=== PATIENT | male | born 1950 | race Caucasian/White ===

== ENCOUNTER 2019-06-18 11:23 | Emergency (ER) | payer MEDICARE, OTHER ==
--- NOTE | 2019-06-18 12:27 | ED Physician Documentation ---
PD HPI ABD PAIN - Stated complaint Stated Complaint: MALE - Chief complaint Chief Complaint: Abd Pain - History obtained from History obtained from: Patient - History of Present Illness Timing - onset: Other (68-year-old gentleman status post remote coronary bypass and stroke presents with 10 days of lower abdominal and pelvic pain radiating to the right lower quadrant. It started after eating spicy food and a car trip so he thought either of those might be causative but as time continued and he got no relief, that did not seem likely. It is a constant dull pain. Its not associated with nausea, vomiting, changes in bowel movements, testicular pain, or urinary complaints or hematuria. No history of abdominal surgeries.) Review of Systems Ten Systems: 10 systems reviewed and negative Constitutional: denies: Fever, Chills Cardiac: denies: Chest pain / pressure, Palpitations Respiratory: denies: Dyspnea, Cough GI: reports: Abdominal Pain. denies: Nausea, Vomiting, Constipation, Diarrhea, Hematemesis, Bloody / black stool PD PAST MEDICAL HISTORY - Past Medical History Past Medical History: Yes Cardiovascular: Coronary artery disease - Past Surgical History Past Surgical History: Yes Cardiovascular: CABG - Allergies Allergies/Adverse Reactions: Allergies Allergy/AdvReac Type Severity Reaction Status Date / Time morphine Allergy Emesis Verified 06/18/19 11:29 - Living Situation Living Situation: reports: With spouse/s.o. - Social History Does the pt smoke?: No Does the pt drink ETOH?: No - Family History Family history: reports: Non contributory PD ED PE NORMAL - Vitals Vital signs reviewed: Yes - General General: Alert and oriented X 3, No acute distress - HEENT HEENT: PERRL, EOMI - Neck Neck: Supple, no meningeal sign, No bony TTP - Cardiac Cardiac: RRR, No murmur - Respiratory Respiratory: No respiratory distress, Clear bilaterally - Abdomen Abdomen: Normal bowel sounds, Soft, No organomegaly, Other (Focally tender in the pelvic area and right lower quadrant without surgical signs) - Back Back: No CVA TTP, No spinal TTP - Derm Derm: Normal color, Warm and dry, No rash - Extremities Extremities: No edema, No calf tenderness / cord - Neuro Neuro: Alert and oriented X 3, Normal speech Results - Vitals Vitals: Vital Signs - 24 hr 06/18/19 11:29 Temperature 36.7 C Heart Rate 61 Respiratory 16 Rate Blood Pressure 177/68 H O2 Saturation 97 Oxygen O2 Source Room air - Labs Labs: Laboratory Tests 06/18/19 06/18/19 06/18/19 12:15 12:40 12:40 WBC 6.1 RBC 5.35 Hgb 16.2 Hct 49.7 MCV 92.9 MCH 30.3 MCHC 32.6 RDW 12.7 Plt Count 199 MPV 9.7 Neut # (Auto) 4.1 Lymph # (Auto) 1.[address] [place] # (Auto) 0.4 Eos # (Auto) 0.1 Baso # (Auto) 0.1 Absolute Nucleated RBC 0.00 Nucleated RBC % 0.0 Sodium 136 Potassium 4.1 Chloride 101 Carbon Dioxide 26 Anion Gap 9.0 BUN 15 Creatinine 1.3 H Estimated GFR (MDRD) 55 L Glucose 129 H Calcium 9.1 Total Bilirubin 0.8 AST 26 ALT 22 Alkaline Phosphatase 40 L Total Protein 8.0 Albumin 4.7 Globulin 3.3 Albumin/Globulin Ratio 1.4 Lipase 37 Urine Color YELLOW Urine Clarity CLEAR Urine pH 6.0 Ur Specific [place] <=1.005 Urine Protein NEGATIVE Urine Glucose (UA) NEGATIVE Urine Ketones NEGATIVE Urine Occult Blood NEGATIVE Urine Nitrite NEGATIVE Urine Bilirubin NEGATIVE Urine Urobilinogen 0.2 (NORMAL) Ur Leukocyte Esterase NEGATIVE Ur Microscopic Review NOT INDICATED Urine Culture Comments NOT INDICATED - Rads (name of study) CT A/p Radiology: EMP read contemporaneously (diverticolsis, NAD) PD MEDICAL DECISION MAKING - ED course ED course: 69-year-old gentleman presents with kind of subacute right lower quadrant pain, some tenderness on exam. CT imaging was done, read is negative although there is a prominent stool ball in the right lower quadrant which may be causative. We will trial some magnesium citrate for same. He declined pain medication. Departure - Departure Disposition: Home, Self Care Clinical Impression: Abdominal pain Qualifiers: Abdominal location: right lower quadrant Qualified Code(s): R10.31 - Right lower quadrant pain Condition: Good Record reviewed to determine appropriate education?: Yes Instructions: ED Abdominal Pain Unkn Cause Male Comments: The radiologist noted no abnormalities on your CAT scan other than diverticulosis, not diverticulitis, and you already knew about this. I feel that stool ball may be the cause of your pain and should be better after the magnesium citrate. Return for new or worsening symptoms, you should still follow-up for that colonoscopy as you were planning. Your blood pressure was elevated today on check into the emergency department. This does not mean that you have hypertension, it is a common phenomenon to come to the emergency department and have elevated blood pressure. I recommend that you see your primary care physician within the week to have it rechecked when you are feeling better.
[2019-06-18 12:28] LABS: BILIRUBIN,URINE NEGATIVE (NEGATIVE); GLUCOSE, URINE (UA) NEGATIVE (NEGATIVE); KETONES,URINE (UA) NEGATIVE (NEGATIVE); LEUKOCYTE ESTERASE, URINE NEGATIVE (NEGATIVE); NITRITE,URINE NEGATIVE (NEGATIVE); OCCULT BLOOD,URINE NEGATIVE (NEGATIVE); PROTEIN,URINE NEGATIVE (NEGATIVE); UROBILINOGEN,URINE 0.2 (NORMAL) E.U./dL (NORMAL)
[2019-06-18 12:44] LABS: CLARITY,URINE CLEAR (CLEAR)
[2019-06-18 13:12] LABS: BASOPHILS # (AUTO) 0.1 10^3/uL (0.0-0.1); EOSINOPHILS # (AUTO) 0.1 10^3/uL (0.0-0.7); EOSINOPHILS % (AUTO) 2.3 %; HGB - HEMOGLOBIN 16.2 g/dL (14.0-18.0); LYMPHOCYTES # (AUTO) 1.4 10^3/uL (1.5-3.5); LYMPHOCYTES % (AUTO) 22.5 %; MEAN CORPUSCULAR HEMOGLOBIN 30.3 pg (27.0-31.0); MEAN CORPUSCULAR HGB CONC 32.6 g/dL (32.0-36.0); MEAN CORPUSCULAR VOLUME 92.9 fL (80.0-94.0); MEAN PLATELET VOLUME 9.7 fL (7.4-11.4); MONOCYTES # (AUTO) 0.4 10^3/uL (0.0-1.0); MONOCYTES % (AUTO) 6.4 %; NEUTROPHILS # (AUTO) 4.1 10^3/uL (1.5-6.6); NEUTROPHILS % (AUTO) 67.3 %; PLT - PLATELET COUNT 199 10^3/uL (130-450); RED BLOOD COUNT 5.35 10^6/uL (4.70-6.10); RED CELL DISTRIBUTION WIDTH 12.7 % (12.0-15.0); WHITE BLOOD COUNT 6.1 x10^3/uL (4.8-10.8)
[2019-06-18 13:23] LABS: ALBUMIN 4.7 g/dL (3.2-5.5); ALBUMIN/GLOBULIN RATIO 1.4 (1.0-2.2); BILIRUBIN,TOTAL 0.8 mg/dL (0.2-1.0); CALCIUM 9.1 mg/dL (8.5-10.3); CREATININE 1.3 mg/dL (0.6-1.2)
[2019-06-18] MEDS ORDERED: IOVERSOL 320 100 ML VIAL IVP ONE ×2 (13:34→15:58)
--- NOTE | 2019-06-18 14:35 | CT Report ---
Reason: right lower quadrant pain Procedure Date: 06/18/2019 Accession Number: [id number] / [id number] Procedure: CT - Abdomen/Pelvis W CPT Code: Final Report FULL RESULT: EXAM: CT ABDOMEN AND PELVIS EXAM DATE: 06/18/2019 02:04 PM HISTORY: right lower quadrant pain COMPARISON: NONE TECHNIQUE: Routine helical CT imaging was performed through the abdomen and pelvis. IV contrast: 90 mL Optiray 320. Enteric contrast: No. Reconstructions: Coronal and sagittal. In accordance with CT protocol optimization, one or more of the following dose reduction techniques were utilized for this exam: automated exposure control, adjustment of mA and/or KV based on patient size, or use of iterative reconstructive technique. FINDINGS: LOWER CHEST: Unremarkable. SOLID ORGANS: Within exam limitations, there is no significant abnormality of the liver, spleen, pancreas, adrenal glands or kidneys. GALLBLADDER/BILE DUCTS: No significant abnormality. PERITONEAL CAVITY/BOWEL: No abnormal bowel dilatation. No free air or free fluid. Distal colonic diverticulosis noted without evidence of diverticulitis. Normal appendix. CENTRAL RETROPERITONEUM: Moderate calcific atherosclerotic disease of the aorta. No aneurysm. No retroperitoneal lymphadenopathy. PELVIS: Unremarkable urinary bladder contour. No intravesicular calculi. No inflammation or free fluid. OTHER: Skeleton: No significant skeletal abnormality. Abdominal wall: No significant abnormality. IMPRESSION: Distal colonic diverticulosis noted without evidence of diverticulitis. Normal appendix. No evidence of inflammation or free fluid. RADIA
[2019-06-18] MEDS ORDERED: MAGNESIUM CITRATE 296 ML BOTTLE PO STA (14:38)
[2019-06-18 14:51] VITALS: BP 134/79
== END 2019-06-18 14:51 | disposition home or self-care (01) ==
LOC: ED 11:23
DX: R10.31 Right lower quadrant pain (principal); R03.0 Elevated blood-pressure reading, without diagnosis of hypertension
CPT/HCPCS: 36415; 74177; 80053; 81003; 83690; 85025; 99284; A9270; Q9967; 81001; 87086

== ENCOUNTER 2021-08-16 08:00 | Outpatient (CLI) | payer MEDICARE, OTHER ==
[2021-08-16 17:18] LABS: BILIRUBIN,URINE NEGATIVE (NEGATIVE); GLUCOSE, URINE (UA) NEGATIVE (NEGATIVE); KETONES,URINE (UA) NEGATIVE (NEGATIVE); LEUKOCYTE ESTERASE, URINE NEGATIVE (NEGATIVE); NITRITE,URINE NEGATIVE (NEGATIVE); OCCULT BLOOD,URINE NEGATIVE (NEGATIVE); PH,URINE 6.5 PH (5.0-7.5); PROTEIN,URINE NEGATIVE (NEGATIVE); UROBILINOGEN,URINE 0.2 (NORMAL) E.U./dL (NORMAL)
[2021-08-16 17:23] LABS: CLARITY,URINE CLEAR (CLEAR)
[2021-08-16 17:27] LABS: BACTERIA,URINE None Seen /HPF (None Seen); RBC,URINE None Seen /HPF (0-5); SQUAMOUS EPITHELIAL CELL,UR NONE SEEN (<= Few); WBC,URINE 0-3 /HPF (0-3)
== END 2021-08-16 23:59 | disposition home or self-care (01) ==
LOC: LAB.S 08:00
PROVIDERS: ATTEND Emergency Medicine
DX: N41.9 Inflammatory disease of prostate, unspecified (principal)
CPT/HCPCS: 81001; 87086

== ENCOUNTER 2021-12-11 10:01 | Outpatient (CLI) | payer MEDICARE, OTHER ==
[2021-12-11 15:28] LABS: CALCIUM 9.3 mg/dL (8.5-10.3); CREATININE 1.2 mg/dL (0.6-1.2); POTASSIUM 4.1 mmol/L (3.5-5.0)
== END 2021-12-11 10:02 | disposition home or self-care (01) ==
LOC: LAB.S 10:01
PROVIDERS: ATTEND Physician Assistant Medical
DX: N41.9 Inflammatory disease of prostate, unspecified (principal)
CPT/HCPCS: 36415; 80048